=== PATIENT | female | born 1960 | race Caucasian/White ===

== ENCOUNTER 2022-05-24 02:46 | Day surgery (SDC) | payer OTHER, SELFPAY ==
[2022-05-12 14:33] VITALS: BMI 25.9
--- NOTE | 2022-05-12 14:37 | PC.NURSE ---
Report to the Outpatient Waiting Room, entrance under the green pavilion located off [facility], at time 11:30 on date 05/24/22. Planned Procedure Time: 1:30. Time changes happen often and if your time is changed the preop area will call you the afternoon before. - You and your visitor will be asked to self-screen and do not enter if you have any COVID symptoms. - Only one visitor is requested with a max of two and NO children visitors are allowed at this time. - The patient visitor may be requested to leave or wait in car when not with patient due to distancing restrictions. - A mask is optional within the hospital. Patients may have clear liquids (water, carbonated beverages, clear teas, apple juice) until 3 hours prior to surgery with a maximum of 20 ounces. - No food from midnight until time of surgery Take the following medications with a SIP of water the morning of surgery: N/A Medications to discontinue per physician: VITAMINS Date to take last dose: 05/20/22 Please no make-up, nail faroese, hairspray, perfume, deodorant, or body powder the day of surgery. No jewelry (including any body piercings) or valuables the day of surgery, leave them at home. Please take a shower or bath the night before, or the morning of, surgery with an antibacterial soap. Wear comfortable, loose fitting clothing. - Jewelry must be removed prior to entering the operating room. Rings and piercings that are not removed may be cut off. - The hospital will not accept responsibility for valuables. - Please leave all valuables, including medications, at home the day of surgery. If you are going home after surgery, a licensed courier driver must drive you home. - NO public transportation without another adult if you receive anesthesia. - We recommend that an adult stay with you for 24 hours following discharge. - We also recommend that you do not drive, make important decision, drink alcoholic beverages, or take any drugs that were not prescribed by your health care provider for at least 24 hours after your discharge time. Follow any additional instructions given to you from your surgeon. If you or anyone in your household have experienced Covid symptoms in the past week, please notify your surgeon or the nurse liaison at the phone number below for possible testing. Telephone instructions given to PT - TAM BABB and asked if any additional questions and then verbalized understanding. Patient advised to call surgeon office or pre surgery nurse liaison [phone] if any additional questions.
--- NOTE | 2022-05-23 12:57 | PM.IMHP ---
H&P: HPI History of Present Illness Date/Time: 05/23/22 12:57 Chief Complaint: Stress incontinence Narrative: 62-year-old with documented stress incontinence on urodynamics. It is bothersome by history. She presents for operative repair Review of Systems Review of Systems: All systems reviewed & are unremarkable except as noted in HPI and below [facility] Social History Social History Smoking status: Never smoker Alcohol intake: current Alcohol use details: OCCASIONALLY Substance use: never Substance use type: does not use Living arrangements: with family Spiritual care concerns: No Meds Home Medications and Allergies Home Medications Medication Instructions Recorded Confirmed Type calcium carbonate 500 mg calcium 500 mg PO DAILY 05/12/22 05/12/22 History (1,250 mg) chewable tablet (Calcium 500) multivitamin 1 tablet PO DAILY 05/12/22 05/12/22 History Allergies Allergy/AdvReac Type Severity Reaction Status Date / Time No Known Allergies Allergy Verified 05/12/22 14:33 Exam Narrative: No acute distress Normal breathing Alert orient x3 Urethral mobility noted Assessment and Plan Assessment and plan (1) TAHIRA (stress urinary incontinence, female): Code(s): N39.3 - Stress incontinence (female) (male) Status: Acute Assessment and Plan: Will proceed with urethral sling. Understands risks of bleeding, infection, damage to the urinary tract, lack of cure, persistent or recurrent incontinence, hip and leg pain, dyspareunia, vaginal mesh extrusion, urinary tract mesh erosion, obstructive voiding requiring secondary procedure. Agrees to proceed
[2022-05-24] VITALS (9 sets, daily range): BP systolic 95–139; BP diastolic 38–70; PULSE 46–69; RESP 12–18; TEMP 36.4; O2SAT 97–100
--- NOTE | 2022-05-24 07:12 | WPDHPUPDATE1 ---
History and Physical Update Update Date/Time: 05/24/22 07:12 History and Physical has been reviewed, including an updated exam of the patient. There are NO changes in the patient's condition. Risks, benefits, and alternatives have been discussed and questions answered. Patient agrees to proceed with procedure.
[2022-05-24] MEDS: LACTATED RINGERS 1,000 ML 30 ML IV CONT (12:08)
--- NOTE | 2022-05-24 12:59 | WPDANESEPPF ---
Anes - Initial Pre Proc Eval Procedure: Operation Date: 05/24/22 13:30 Proposed Procedures p Urethral Sling - Manuelito Cabello MD Date/Time: 05/24/22 12:59 Surgeon: Manuelito Cabello MD Pre Op Diagnosis: stress incontience Patient Data Age: 62 Gender: F Height: 1.71 m Weight: 72.15 kg Last Vital Signs Temp 97.5 F L 05/24/22 11:47 Pulse 64 05/24/22 11:47 Resp 18 05/24/22 11:47 BP 127/38 L 05/24/22 11:47 Pulse Ox 100 05/24/22 11:47 O2 Del Method Room Air 05/24/22 11:47 Allergies Allergy/AdvReac Type Severity Reaction Status Date / Time No Known Allergies Allergy Verified 05/24/22 12:31 Home Medications Medication Instructions Recorded Confirmed Type calcium carbonate 500 mg calcium 500 mg PO DAILY 05/12/22 05/24/22 History (1,250 mg) chewable tablet (Calcium 500) multivitamin 1 tablet PO DAILY 05/12/22 05/24/22 History Patient hx anesthesia problems: none Family hx anesthesia problems: none Results Review: All pre-operative results and documents have been reviewed as part of the pre-operative evaluation. [facility] Social History Social History Smoking status: Never smoker Alcohol intake: current Alcohol use details: OCCASIONALLY Substance use: never Substance use type: does not use Living arrangements: with family Spiritual care concerns: No Anes - Eval Final PreProcedure Day of Procedure 05/24/22 12:59 Patient weight: normal Heart: regular rate and rhythm Lungs: clear to auscultation Airway: Mallampati scale class II Neurological: alert and oriented Last oral intake: >/= 8 hours ASA classification: I Emergent: no Anesthetic plan: proceed Anesthesia type and monitoring: general GIVS and standard monitoring Results Review: All pre-operative results and documents have been reviewed as part of the pre-operative evaluation. Informed Consent: The patient's anesthetic plan and its attendant risks and benefits were discussed with the patient/family/POA. Questions were solicited and answers provided to the satisfaction of the patient/family/POA.
[2022-05-24] MEDS: ceFAZolin 2 GM/D5W 50 ML 2 GM/50 ML BAG IVPB (13:06)
[2022-05-24] MEDS: BUPIVACAINE/EPINEPHRINE 0.5% 30 ML VIAL 10 ML INFILTRATE (13:30)
--- NOTE | 2022-05-24 13:49 | W.PM.PROC2 ---
Procedure Note - Detailed Date of Procedure 05/24/22 Pre-op Diagnosis stress incontience Post-op Diagnosis Same Procedure Performed mid urethral sling cystoscopy Surgeon Manuelito Cabello MD Anesthesia MAC Indications This is a female with confirmed stress urinary incontinence. She desires surgical correction. She understands the risks of bleeding, infection, injury to the urinary tract, vaginal mesh extrusion, urinary tract mesh erosion, obstructive voiding requiring a secondary procedure, hip and leg pain, dyspareunia, inability to improve overactive bladder symptoms. She agrees to proceed. Description of Procedure She was correctly identified. Informed consent obtained. She was brought the operating room. She was given appropriate anesthesia. She was given appropriate perioperative antibiotics. A time-out performed. I marked out the site of the inner thigh incisions. I anesthetized the skin and made those incisions. I anesthetized the anterior vaginal wall over the mid urethra. Of note she had atrophic changes and thinning of the vaginal mucosa. I made a 1 cm incision. I dissected out laterally taking great care not to injure the refilled vaginal wall. I passed the helical trocars. First on the left. Then on the right. I did this from the thigh incision towards the vaginal incision. The sling was connected to the trocars and brought out through the thigh incision. I tensioned the sling appropriately. I cut and the plastic sheaths. I then closed the incision with 2 0 Vicryl. On cystoscopy there is no tumors or surgical artifact. There was no surgical artifact in the urethra. I cut the excess sling material. Close incisions with glue. She was awakened and transferred to the PACU in stable condition. Implants Urethral sling Estimated Blood Loss 10 Drains No Packing No Pathology None sent Complications No immediate complications Condition Stable Disposition PACU
[2022-05-24] MEDS: fentaNYL CITRATE INJ (*CRX) 100 MCG/2 ML VIAL 25 MCG IV PUSH (14:22)
[2022-05-24] MEDS: oxyCODONE HCL (*CRX) 5 MG TAB IR PO (15:51)
[2022-05-24] MEDS: ONDANSETRON HCL ODT 4 MG TABLET PO (16:25)
--- NOTE | 2022-05-24 16:26 | SUR.PHASEII ---
PATIENT SUDDENLY FELT FAINT AND NAUSEATED WHILE DRESSING. LOWERED HEAD OF RECLINER AND ELEVATED LEGS. COOL COMPRESSES TO FOREHEAD AND NECK. DR. GOODMAN CALLED WHO ORDERED REDDY WHEELER.
--- NOTE | 2022-05-24 16:37 | SUR.PHASEII ---
PATIENT STATES SHE FEELS MUCH BETTER NOW. NO LONGER LIGHT-HEADED OR NAUSEATED. TAKING A CLEAR SODA NOW.
== END 2022-05-24 16:49 | disposition home or self-care (01) ==
PROVIDERS: PCP Internal Medicine; Visit Provider Urology
PROC: (CPT 57288; principal; 2022-05-24 13:30)
DX: N39.3 Stress incontinence (female) (male) (principal)
CPT/HCPCS: 57288; A9270; C1771; J0690; J2250; J2405; J2704; J3010; J7030; J7120